=== PATIENT | male | born 1965 | race Caucasian/White ===

== ENCOUNTER 2024-10-07 06:16 | Day surgery (SDC) | payer BC, SELFPAY | END 2024-10-07 09:35 | disposition home or self-care (01) | LOC: GI 06:16 | PROVIDERS: ATTENDING PHYSICIAN Specialist | DX: Z12.11 Encounter for screening for malignant neoplasm of colon (principal); D12.3 Benign neoplasm of transverse colon; K57.30 Diverticulosis of large intestine without perforation or abscess without bleeding | CPT/HCPCS: 45385; 45380; 88305 ==